=== PATIENT | male | born 1995 | race Caucasian/White ===

== ENCOUNTER 2016-11-27 00:23 | Emergency (ER) | payer OTHER ==
[2016-11-27 00:31] VITALS: BP 130/78; PULSE 68; RESP 18; TEMP 97.1
[2016-11-27] MEDS ORDERED: diphenhydrAMINE 25 MG CAP PO STA (01:05)
--- NOTE | 2016-11-27 01:11 | ED ---
Skin/Abscess/FB HPI - General Chief complaint: Skin/Abscess/Foreign Body Stated complaint: itchy Time Seen by Provider: 11/27/16 00:36 Source: patient, RN notes reviewed Mode of arrival: ambulatory Limitations: no limitations - History of Present Illness Initial comments: Patient is a 20-year-old male presents emergency room for evaluation of sunburn. Patient states he has sunburn on anterior shins, thighs and abdomen. Patient states he was out in the sun all day on Thursday and did not wear sunscreen. Patient states he still continuing to itch and have Discomfort. Patient states he's been trying aloe and other lotions with no relief of symptoms. Patient denies trying Benadryl. Patient denies fevers or chills. Patient denies any other symptoms or complaints. - Related Data Home Medications Medication Instructions Recorded Confirmed No Known Home Medications [No 11/27/16 11/27/16 Known Home Medications] Allergies Allergy/AdvReac Type Severity Reaction Status Date / Time No Known Allergies Allergy Verified 11/27/16 00:31 Review of Systems ROS Statement: Those systems with pertinent positive or pertinent negative responses have been documented in the HPI. ROS Other: All systems not noted in ROS Statement are negative. Past Medical History Past Medical History: No Reported History History of Any Multi-Drug Resistant Organisms: None Reported Past Surgical History: No Surgical Hx Reported Past Psychological History: No Psychological Hx Reported Smoking Status: Never smoker Past Alcohol Use History: None Reported Past Drug Use History: None Reported General Exam - General Exam Comments Initial Comments: sitting in exam room, no acute distress. Limitations: no limitations General appearance: alert, in no apparent distress Head exam: Present: atraumatic, normocephalic, normal inspection Eye exam: Present: normal appearance ENT exam: Present: normal exam Neck exam: Present: normal inspection Respiratory exam: Present: normal lung sounds bilaterally. Absent: respiratory distress Cardiovascular Exam: Present: regular rate, normal rhythm, normal heart sounds Extremities exam: Present: normal inspection Back exam: Present: normal inspection Neurological exam: Present: alert, oriented X3, CN II-XII intact, normal gait Psychiatric exam: Present: normal affect, normal mood Skin exam: Present: warm, dry, intact, erythema (superficial burn of anterior alvarez, thighs and abdomen.) Course Vital Signs 11/27/16 00:28 Temperature 97.1 F L Pulse Rate 68 Respiratory 18 Rate Blood Pressure 130/78 O2 Sat by Pulse 99 Oximetry Medical Decision Making - Medical Decision Making Patient is a 20-year-old male since emergency room for evaluation of superficial sunburn. Advised patient to continue applying aloe or cocoa butter. Patient given Benadryl here for the itching. Advised patient to wear sunscreen when out in the sun. Patient states he understands everything that was discussed with him. Return parameters discussed. Case discussed with Dr. Caro. Disposition Clinical Impression: Sunburn of first degree Disposition: HOME SELF-CARE Condition: Good Instructions: Sunburn (ED), Skin Cancer Prevention (ED) Additional Instructions: Take Benadryl 4-6 hours as needed. Wear sunscreen when out in the sun. If any new symptom arises or symptoms worsen, return to ER as soon as possible. Referrals: Nonstaff,Physician [Primary Care Provider] - 1-2 days Time of Disposition: 01:09
== END 2016-11-27 01:29 | disposition home or self-care (01) ==
LOC: EC 00:23
DX: L55.0 Sunburn of first degree (principal)
CPT/HCPCS: 99282

== ENCOUNTER → 2019-09-27 | Outpatient (CLI) | payer OTHER | END | disposition home or self-care (01) | LOC: LABWHC1 09-26 10:59 | PROVIDERS: ATTEND Family Medicine | DX: U07.1 COVID-19 (principal) | CPT/HCPCS: 87635 ==